=== PATIENT | female | born 2005 | race Hispanic/Latino ===

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

== ENCOUNTER 2023-01-15 02:32 | Emergency (ER) | payer MEDICAID ==
[~2023-01-15] VITALS: Ht 157.5 cm; Wt 48.1 kg
[~2023-01-15 02:32] MED LIST changes: -ALBU2.5V2 IH; -CYCL10TA16 PO; +FLUT220HFA IH; -IBUP-2070 PO; -IBUP-2076 PO; +LORA10TA60 PO; +NAPR-1179 PO; -ONDA4TAB10 PO; -PRED20TA3 PO
[2023-01-15] MEDS ORDERED: ONDA-104 PO (03:30)
[2023-01-15] MEDS ORDERED: IBUP-1493 PO (03:30)
[2023-01-15] MEDS ORDERED: PRED20TA3 PO (03:30)
[2023-01-15] MEDS ORDERED: DIPH1TAB PO (03:30)
[2023-01-15] MEDS ORDERED: ONDANSETRON ODT 4MG TAB SL ONE (04:00)
[2023-01-15] MEDS ORDERED: DIPHENOXYLATE HCL/ATROPINE 2.5/0.025 MG TAB PO ONE (04:00)
[2023-01-15] MEDS ORDERED: ACETAMINOPHEN 325 MG TAB PO STA (04:13)
[2023-01-15] MEDS ORDERED: BENZONATATE 100 MG CAPSULE PO ONE (04:30)
[2023-01-15 05:04] VITALS: BP 124/75; PULSE 88; RESP 20
== END 2023-01-15 05:09 | disposition home or self-care (01) ==
LOC: EDH 02:32
DX: U07.1 COVID-19 (principal); B34.9 Viral infection, unspecified; J45.909 Unspecified asthma, uncomplicated; Z79.51 Long term (current) use of inhaled steroids; Z88.1 Allergy status to other antibiotic agents

== ENCOUNTER → 2023-06-20 | Emergency (ER) | payer BC ==
[~2023-06-20] VITALS: Ht 157.5 cm; Wt 49.4 kg
[~2023-06-20] MED LIST changes: +AMOX-426 PO; +BENZ200C53 PO; +BROM118S48 PO; +DIPH1TAB PO; +IBUP-1493 PO; +IBUP-2076 PO; +ONDA-104 PO; +PRED20TA3 PO
[2023-06-20 00:09] VITALS: BP 115/56; PULSE 75; RESP 18
== END ==
LOC: EDH 00:07
DX: K62.5 Hemorrhage of anus and rectum (principal); J45.909 Unspecified asthma, uncomplicated; Z79.1 Long term (current) use of non-steroidal anti-inflammatories (NSAID); Z79.51 Long term (current) use of inhaled steroids
CPT/HCPCS: 99281